=== PATIENT | male | born 1975 | race Caucasian/White ===

== ENCOUNTER → 2019-05-05 | Day surgery (SDC) | payer BC ==
--- NOTE | 2019-04-30 11:24 | Diagnostic Imaging Report ---
EXAMINATION: CHEST 2 VIEWS INDICATION: Pre-operative COMPARISON: None FINDINGS: TUBES and LINES: None. LUNGS: The lung volumes are normal. No focal consolidation or pulmonary edema. PLEURA: No pleural effusion or pneumothorax. HEART AND MEDIASTINUM: The cardiomediastinal silhouette is normal in size and contour. BONES AND SOFT TISSUES: No acute fracture or dislocation. Cervical spine fusion hardware partially visualized. UPPER ABDOMEN: No free air under the diaphragm. IMPRESSION: No focal pneumonia or pulmonary edema. Signed by: Darnell Ramirez MD on 04/30/2019 11:20 AM
[~2019-05-05] MED LIST: ABILIFY5 MG PO; BUSPIRONE HCL10 MG PO; CEFAZOLIN SOD 1 GM/NS 50ML 50 ML IV ONE; CHOLESTEROL PO; DEXAMETHASONE SOD PHOS INJ 4 MG/ML VIAL ONE; ESMOLOL HCL 100MG/10ML 10 MG/ML VIAL ONE; FENTANYL CITRATE/PF 100MCG/2 ML INJ ONE; KETOROLAC TROMETHAMINE 30 MG/ML VIAL ONE; LIDOCAINE HCL 2% LOCAL INJ 5 ML SDV VIAL INJ ONE; LORAZEPAM1 MG PO; LYRICA75 MG PO; METHOCARBAMOL750 MG PO; MIDAZOLAM HCL 2 MG/2 ML VIAL ONE; MORPHINE SULFATE INJ 10 MG/ML ONE; ONDANSETRON HCL INJ 2MG/ML 2ML 2 MG/ML VIAL ONE; OXYCODONE-ACET1 EAC1 PO; PROPOFOL IV EMULSION 10 MG/ML 20 ML VIAL ONE; SERTRALINE HCL100 MG PO; SEVOFLURANE INHAL SOLN 250 ML PEN BTL ONE; SUCCINYLCHOLINE 200 MG/10 ML SYR ONE; benicar PO; fish oil; valium PO; zoloft PO
--- OUTSIDE RECORDS SUMMARY | 2019-05-05 05:08 | XMS REPORT | Clinical Summary ---
Author Author [facility] Address Unknown Phone Unavailable Care Team Providers Care Ux Designer Name Role Phone Clark Warren MD PCP Allergies No Known Allergies Medications End Date Status Medication Sig Dispensed Refills Start Date Active LORAZEPAM ORAL Take by mouth 0 2 (two) times a day. Active sertraline HCl Take 100 mg 0 (SERTRALINE ORAL) by mouth 2 (two) times a day. Active ALPRAZOLAM ORAL Take 10 mg by 0 mouth nightly. Active busPIRone (BUSPAR) 15 MG Take 15 mg by 0 tablet mouth 2 (two) times a day. 04/11/2019 methocarbamol (ROBAXIN) Take 1 tablet 21 tablet 0 750 MG tablet (750 mg 9 total) by mouth 3 (three) times a day for 7 days. 04/11/2019 pregabalin (LYRICA) 75 MG Take 1 21 capsule 0 capsule capsule (75 9 mg total) by mouth 3 (three) times a day for 7 days. 04/11/2019 oxyCODone-acetaminophen Take 1 tablet 28 tablet 0 (PERCOCET) 10-325 mg per by mouth 9 tablet every 6 (six) hours as needed for moderate pain or severe pain for up to 7 days. 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 04/03/2019 Encounters Care Team Description Date Type Specialty Chirag Shane CRNA 04/03/2019 Anesthesia General Surgery Event Sita Sabillon MD ACDF C5-6 W/ REMOVAL OF DEPUY PLATING @ C6-7 W/ MEDTRONIC PLATE AND CERVICAL INTERBODY 04/03/2019 Surgery General Surgery Sita Sabillon MD Degeneration of cervical disc without myelopathy (Primary Dx); Preoperative testing 04/03/2019 Hospital General Surgery - Encounter 04/04/2019 Sita Sabillon MD Preop testing (Primary Dx) 04/01/2019 Pre-Admit Pre-Admission Testing Testing Appointment Sita Sabillon MD 03/28/2019 Hospital Radiology Encounter Sita Sabillon MD 03/28/2019 Hospital Radiology Encounter Sita Sabillon MD 03/28/2019 Hospital Radiology Encounter Sita Sabillon MD 03/28/2019 Hospital Radiology Encounter Thanh Brar MD 03/24/2019 Anesthesia General Surgery Event Diego Hollins MD LEFT ESWL WITH CYSTO WITH REMOVAL OF STENT 03/24/2019 Surgery General Surgery Diego Hollins MD Preop testing; Preoperative testing 03/24/2019 Hospital General Surgery Encounter Diego Hollins MD 03/20/2019 Hospital Radiology Encounter Sita Sabillon MD Preop testing (Primary Dx) 03/20/2019 Pre-Admit Pre-Admission Testing Testing Appointment Sita Sabillon MD 02/26/2019 Hospital Radiology Encounter Sita Sabillon MD Preoperative testing (Primary Dx) 02/26/2019 Pre-Admit Pre-Admission Testing Testing Appointment after 05/04/2018 Family History Medical History Relation Name Comments Cancer Father No Known Problems Mother Relation Name Status Comments Father lung ca Maternal Grandfather Maternal Grandmother Mother Alive Paternal Grandfather Paternal Grandmother Social History Date Tobacco Use Types Packs/Day Years Used Former Smoker Cigarettes 1 15 Smokeless Tobacco: Former User Tobacco Cessation: Ready to Quit: No; Counseling Given: Yes Alcohol Use Drinks/Week oz/Week Comments Yes social Sex Assigned at Date Recorded Not on file Industry Job Start Date Occupation Not on file Not on file Not on file Travel End Travel History Travel Start No recent travel history available. Last Filed Vital Signs Time Taken Vital Sign Reading 04/04/2019 3:23 PM CDT Blood Pressure 149/97 04/04/2019 3:23 PM CDT Pulse 99 04/04/2019 3:23 PM CDT Temperature 36.1 C (97 F) 04/04/2019 3:23 PM CDT Respiratory Rate 18 04/04/2019 3:23 PM CDT Oxygen Saturation 96% - Inhaled Oxygen - Concentration 04/03/2019 8:38 AM CDT Weight 94.8 kg (209 lb) 04/03/2019 8:38 AM CDT Height 172.7 cm (5' 8") 04/03/2019 8:38 AM CDT Body Mass Index 31.78 Plan of Treatment Health Maintenance Due Date Last Done Comments INFLUENZA VACCINE 05/08/2019 Implants Device Identifier Shelf Expiration Date Model / Serial / Lot Implanted Type Area Manufactur er 08/12/2021 [id number] / [id number] / [id number] Tissue [id number] L Sr Srvc Fee, IPM N/A: Spine MEDTRONIC Ts-Allosource L-Sr (Tissue - IMPLANT Cervical SOFAMOR Cervical Interbody) - [id number] - DEVICES MILDRED [id number] Implanted: Qty: 1 on 04/03/2019 by Sita Sabillon MD [id number] / / 3.5 Self-Drilling Screw 13mm IPM N/A: Spine MEDTR[employer]IC Variable - [id number] IMPLANT Cervical SOFAMOR Implanted: Qty: 4 on 04/03/2019 by Sita Carbone MD [id number] / / NA Plate [id number] Zevo 27mm 1 Lvl - IPM N/A: Spine MEDTRONIC [id number] IMPLANT Cervical SOFAMOR Implanted: Qty: 1 on 04/03/2019 by Sita Carbone MD 10/22/2020 [id number] / [id number] / NA Putty .5cc Dbx - Surgical N/A: Spine MUSCULOSKE [id number] - [id number] Implants; Cervical LETAL Implanted: Qty: 1 on 04/03/2019 by Expanders; TRANSPLANT Sita Sabillon MD Extenders; [facility] W[facility] Procedures Comments Procedure Name Priority Date/Time Associated Diagnosis XR CERVICAL SPINE 2 OR 3 Routine 04/03/2019 VW 4:05 PM CDT OR FL > 1 HOUR Routine 04/03/2019 2:55 PM CDT RI AN ELECTIVE Routine 04/03/2019 ENDOTRACHEAL AIRWAY 11:42 AM CDT Procedure Note - Chirag Shane CRNA - 04/03/2019 11:42 AM CDT Airway Performed by: Chirag Shane CRNA Authorized by: Maik Brar MD Location: OR Urgency: Elective Difficult Airway: No Anesthesio logist: Maik Brar MD Resident/C RNA/AA: Chirag Shane CRNA Performed by: resident/C RNA/AA Preoxygena kirsten with 100% O2: Yes Mask Ventilatio n: Not attempted Final Airway Type: Endotrache al airway Final Endotrache al Airway: ETT Cuffed: Yes Technique Used: Direct laryngosco py Devices/Me thods Used in Placement: Intubatin g stylet Insertion Site: Oral Blade Type: Pham Laryngosco pe Blade/Vide olaryngosc ope Blade Size: 2 Cuff at minimum occlusion pressure: Yes Placement Verified by: CO2 detection, direct visualizat ion and equal breath sounds Laryngosco pic view: Grade IIb - view of arytenoids or posterior of glottis only Number of Attempts at Approach: 1 Atraumati c intubation DISCECTOMY, CERVICAL, 04/03/2019 SPINAL STENOSIS, WITH FUSION, ANTERIOR 10:15 AM CDT RADICULOPATHY, STATUS APPROACH POST ACDF M48.02, M54.12, M96.1 Special Needs NEEDS METRONIC, SSEP, ALLOGRAFT, C-ARM, REMOVAL TOOLSJOSH WITH [employer], STEPHANIE WITH [email or web address] AWARE OF NEED FOR REMOVAL INSTRUMENT ATION FOR CASE SCHEDULED FOR 04/03 AT 1015AM TYPE AND SCREEN Routine 04/01/2019 Preop testing 9:15 AM CDT URINALYSIS, AUTOMATED Routine 04/01/2019 Preop testing WITH MICROSCOPY 9:06 AM CDT ESWL WITH CYSTO WITH 03/24/2019 KIDNEY STONE REMOVAL OF STENT 11:10 AM CDT N20.0 Special Needs SCHEDULED ESWL W/ THALIA CONF# [id number] 85. AGERICH XR KUB KIDNEY URETER Routine 03/20/2019 Preop testing BLADDER 3:00 PM CDT ESTIMATED GFR Routine 03/20/2019 2:07 PM CDT BASIC METABOLIC PANEL Routine 03/20/2019 Preop testing 2:07 PM CDT NICOTINE AND COTININE, Routine 03/06/2019 Abnormal blood chemistry SERUM 11:07 AM CDT TYPE AND SCREEN Routine 03/04/2019 Preop testing 12:10 PM CDT XR SPINE EXTERNAL STUDY Routine 02/27/2019 1:12 PM CDT GRAM STAIN Routine 02/26/2019 5:37 PM CDT URINE CULTURE Routine 02/26/2019 5:37 PM CDT URINALYSIS SCREEN AND Routine 02/26/2019 Preoperative testing MICROSCOPY, WITH REFLEX 5:07 PM CDT TO CULTURE XR CHEST 2 VW Routine 02/26/2019 Preoperative testing 3:18 PM CDT ECG 12-LEAD Routine 02/26/2019 Preoperative testing 2:52 PM CDT NICOTINE AND COTININE, Routine 02/26/2019 SERUM 2:50 PM CDT PROTHROMBIN TIME WITH INR Routine 02/26/2019 2:50 PM CDT PARTIAL THROMBOPLASTIN Routine 02/26/2019 Preoperative testing TIME (PTT) 2:50 PM CDT HC COMPLETE BLD COUNT Routine 02/26/2019 Preoperative testing W/AUTO DIFF 2:50 PM CDT URINALYSIS, AUTOMATED Routine 02/26/2019 Preoperative testing WITH MICROSCOPY 2:[address] SPINE EXTERNAL STUDY Routine 10/30/2018 1:42 PM FIRER ELECTRIC LOCOMOTIVE XR SPINE EXTERNAL STUDY Routine 10/23/2018 1:15 PM FIRER [address]LECTRIC LOCOMOTIVE CT SPINE EXTERNAL STUDY Routine 10/21/2018 1:16 PM FIRER ELECTRIC LOCOMOTIVE after 05/04/2018 Results * XR Cervical Spine 2 Or 3 Vw (04/03/2019 4:05 PM CDT) Specimen Narrative Performed At EXAMINATION:XR CERVICAL SPINE 2 OR 3 VW HM RADIANT COMPARISON:Outside plain films February 27, 2019. CLINICAL HISTORY:Intraoperative film. COMMENTS:Intraoperative spot films were obtained in the frontal and lateral projections. FINDINGS:Anterior metallic plate and screws are present C5-6. Intervening bone plug is noted. The vertebral bodies are not seen below C5. IMPRESSION:Intraoperative films as described above. [id number] Procedure Note Interface, Radiology Results Incoming - 04/03/2019 4:16 PM CDT EXAMINATION: XR CERVICAL SPINE 2 OR 3 VW COMPARISON: Outside plain films February 27, 2019. CLINICAL HISTORY: Intraoperative film. COMMENTS: Intraoperative spot films were obtained in the frontal and lateral projections. FINDINGS: Anterior metallic plate and screws are present C5-6. Intervening bone plug is noted. The vertebral bodies are not seen below C5. IMPRESSION: Intraoperative films as described above. [facility]-[id number] Performing Organization Address City/[facility]/Zipcode Phone Number [facility] [address] [place] [address] * OR FL > I Hour (04/03/2019 2:55 PM CDT) Specimen Narrative Performed At EXAMINATION:OR FL 1 HOUR RADIANT C-arm fluoroscopy was requested in OR. FLUORO TIME 00:35 IMAGES 2 IMPRESSION: Separate operative report will be issued by the physician performing the procedure. [id number] Procedure Note Interface, Radiology Results Incoming - 04/03/2019 4:14 PM CDT EXAMINATION: OR FL 1 HOUR C-arm fluoroscopy was requested in OR. FLUORO TIME 00:35 IMAGES 2 IMPRESSION: Separate operative report will be issued by the physician performing the procedure. [id number] Performing Organization Address City/[facility] Cent[facility]ode Phone Number [facility] [address] [place] [address] * Type and screen (04/01/2019 9:15 AM CDT) Only the most recent of 2 results within the time period is included. ABO grouping O [facility] Rh type POS [facility] Antibody screen NEG [facility] Specimen Blood Performing Organization Address City/[facility]/Zipcode Phone Number [facility] [place] [id number] [place] [address] [place] [address] PATHOLOGY AND GENOMIC MEDICINE [facility] [id number] [place] [address] [place] [phone] [facility] * Urinalysis, automated with microscopy (04/01/2019 9:06 AM CDT) Only the most recent of 2 results within the time period is included. Color, UA Yellow [facility] Appearance, UA Clear [facility] Specific 1.023 1.001 - 1.035 [facility] gravity, UA [facility] pH, UA 5.0 5.0 - 8.5 [facility] Protein, UA Negative Negative [facility] Glucose, UA Negative Negative [facility] Ketones, UA Negative Negative [facility] Bilirubin, UA Negative Negative [facility] Blood, UA Negative Negative [facility] Nitrite, UA Negative Negative [facility] Urobilinogen, Negative <2.0 [facility] Leukocyte Negative Negative [facility] esterase, [facility] Epithelial None seen Few /HPF [facility] cells, [facility] Round Few 0 - 1 /HPF [place] [facility] epithelial [facility] cells, [facility] WBC, UA 0-5 0 - 1 /HPF [facility] RBC, UA 0-5 0 - 5 /HPF [facility] Bacteria, UA None seen None seen [facility] Hyaline casts, 3-5 /LPF [facility] Yeast, UA None seen [facility] Yeast with None seen [place] [facility] Specimen Urine Performing Organization Address City/State/Zipcode Phone [place] [address] [place] [address] PATHOLOGY AND GENOMIC MEDICINE [facility] [address] [place] [address] [facility] * XR Kub Kidney Ureter Bladder (03/20/2019 3:00 PM CDT) Specimen Narrative Performed At EXAMINATION:XR KUB KIDNEY URETER BLADDER [facility] CLINICAL HISTORY:Z01.818 Encounter for other preprocedural examination, preop COMPARISON:None. FINDINGS: Double-J ureteral stent in place on the left. The upper coil is at the level of L1. The lower coil is at the midline lower pelvis. Elongated 8 mm calculus just below the upper coil. Scattered fecal material in the colon. Visualized skeleton intact IMPRESSION: Double-J ureteral stent in place on the left. Elongated 8 mm calculus renal pelvis level on the left [id number] Procedure Note Hm Interface, Radiology Results Incoming - 03/20/2019 3:52 PM CDT EXAMINATION: XR KUB KIDNEY URETER BLADDER CLINICAL HISTORY: Z01.818 Encounter for other preprocedural examination, preop COMPARISON: None. FINDINGS: Double-J ureteral stent in place on the left. The upper coil is at the level of L1. The lower coil is at the midline lower pelvis. Elongated 8 mm calculus just below the upper coil. Scattered fecal material in the colon. Visualized skeleton intact IMPRESSION: Double-J ureteral stent in place on the left. Elongated 8 mm calculus renal pelvis level on the left [id number] Performing Organization Address [facility]/Zipcode Phone Number [facility] [address] [place] [address] * Estimated GFR (03/20/2019 2:07 PM CDT) Estimated GFR >=90 mL/min/1.73 m2 [facility] Comment: [facility] rpretation G1 >=90 Normal or high G2 60-89Mildly decreased J3l98-96 Mildly to moderately decreased W0m74-54 Moderately to severely decreased G4 15-29Severely decreased G5 <15Kidney failure The eGFR was calculated using the Chronic Kidney Disease Epidemiology Collaboration (CKD-EPI) equation. Interpretation is based on recommendations of the National Kidney Foundation-Kidney Disease Outcomes Quality Initiative (NKF-KDOQI) published in 2014. Specimen Plasma specimen Performing Organization Address [facility] Centercode Phone [place] [address] [address] [place] [phone] PATHOLOGY AND GENOMIC MEDICINE [facility] [id number] [place] [address] [place] [phone] [facility] * Basic metabolic panel (03/20/2019 2:07 PM CDT) Sodium 142 135 - 148 mEq/L [facility] Potassium 4.4 3.5 - 5.0 mEq/L [facility] Chloride 104 98 - 112 mEq/L [facility] CO2 26 24 - 31 mEq/L [facility] Anion gap 12@ANIO 7 - 15 mEq/L [facility] BUN 20 6 - 20 mg/dL [facility] Creatinine 0.90 0.70 - 1.20 mg/dL [facility] Glucose 118 (H) 65 - 99 mg/dL [facility] Calcium 9.6 8.3 - 10.2 mg/dL [facility] Specimen Plasma specimen Performing Organization Address [facility]/Zipcode [place] Number [place] [address] [address] [place] [phone] PATHOLOGY AND GENOMIC MEDICINE [facility] [address] [place] [phone] [facility] * Nicotine and cotinine, serum (03/06/2019 11:07 AM CDT) Only the most recent of 2 results within the time period is included. Pathologist [facility] Nicotine <2.0 0.0 - 1.9 ng/mL [facility] Cotinine <2.0 0.0 - 1.9 ng/mL [place] [facility] Comment: CAODAISM This test was developed and HOSPITAL its performance characteristics determined by the Department of Pathology and Genomic Medicine, [facility]. Serum nicotine and metabolite cotinine are tested by HPLC tandem mass spectrometry. It has not been cleared or approved by FDA. The laboratory is regulated under CLIA as qualified to perform high-complexity testing. This test is used for clinical purposes. It should not be regarded as investigational or for research. Specimen Blood Performing Organization Address [facility]/Zipcode Phone Number [facility] DEPARTMENT OF [address] [place] [address] PATHOLOGY AND GENOMIC MEDICINE [address] * XR Spine External Study (02/27/2019 1:12 PM CDT) Only the most recent of 2 results within the time period is included. Specimen Narrative Performed At This exam was not acquired at a Denominational facility and has not been RADIANT interpreted by a Denominational Provider.The exam was imported into our imaging system for comparisons purposes. Performing Organization Address City/[facility]/Zipcode Phone Number [facility] [address] [place] [address] * Gram stain (02/26/2019 5:37 PM CDT) [facility] Gram stain No WBC's or organisms seen. [facility] result Comment: CAODAISM Specimen Information HOSPITAL Specimen Source: Urine Specimen Site: Clean catch Specimen Urine Performing Organization Address City/[facility]/Zipcode Phone Number [facility] DEPARTMENT OF [address] [place] [address] PATHOLOGY AND GENOMIC MEDICINE [place] [id number] [place] [address] HOSPITAL * Urine culture (02/26/2019 5:37 PM CDT) Urine culture Mixed triny <=10-3 col/cc [facility] isolate Comment: CAODAISM Specimen Information HOSPITAL Specimen Source: Urine Specimen Site: Clean catch Specimen Urine Performing Organization Address City/[facility]/Zipcode Phone Number [facility] [address] [place] [address] [facility] [place] [address] HOSPITAL * Urinalysis screen and microscopy, with reflex to culture (02/26/2019 5:07 PM CDT) Specimen site Clean catch [facility] Color, UA Fifi [facility] Appearance, UA Turbid [facility] Specific 1.025 1.001 - 1.035 [place] gravity, UA [facility] pH, UA 5.0 5.0 - 8.5 [facility] Protein, UA Negative Negative [facility] Glucose, UA Negative Negative [facility] Ketones, UA Trace (A) Negative [facility] Bilirubin, UA Negative Negative [facility] Blood, UA Moderate (A) Negative [facility] Nitrite, UA Negative Negative [facility] Urobilinogen, Negative <2.0 [facility] Leukocyte Small (A) Negative [place] esterase, UA [facility] Epithelial None seen Few /HPF [place] cells, UA [facility] WBC, UA None seen 0 - 1 /HPF [facility] RBC, UA 0-5 0 - 5 /HPF [facility] Bacteria, UA None seen None seen [facility] Yeast, UA None seen [facility] Yeast with None seen [place] [facility] Specimen Urine Performing Organization Address City/[facility]/Zipcode Phone Number [facility] [address] [place] [address] PATHOLOGY AND GENOMIC MEDICINE [address] [place] [address] [facility] * XR Chest 2 Vw (02/26/2019 3:18 PM CDT) Specimen Narrative Performed At EXAMINATION:XR CHEST 2 VW RADIANT CLINICAL HISTORY:Z01.818 Encounter for other preprocedural examination, PREOP IMPRESSION: Heart and mediastinum are normal. Lungs are clear. There is hardware in cervical spine. [facility]-[id number] Procedure Note Hm Interface, Radiology Results Incoming - 02/26/2019 3:24 PM CDT EXAMINATION: XR CHEST 2 VW CLINICAL HISTORY: Z01.818 Encounter for other preprocedural examination, PREOP IMPRESSION: Heart and mediastinum are normal. Lungs are clear. There is hardware in cervical spine. [facility]-[id number] Performing Organization Address [facility]/Zipcode Phone Number [facility] [address] [place] [address] * ECG 12 lead (02/26/2019 2:52 PM CDT) Ventricular 96 [facility] rate Atrial rate 96 [facility] RI interval 160 [facility] QRSD interval 88 [facility] QT interval 346 [facility] QTC interval 437 [facility] P axis 1 69 [facility] QRS axis 1 -37 [facility] T wave axis 57 [facility] EKG impression Normal sinus rhythm-Possible [facility] MUSE Left atrial enlargement-Left axis deviation-Pulmonary disease pattern-Abnormal ECG-In automated comparison with ECG of 04-MAR-2009 16:32,-QRS axis shifted left- Specimen Narrative Performed At Performing Organization Address [facility] Centercode Phone Number [facility] [address] [place] [address] * Partial thromboplastin time, activated (02/26/2019 2:50 PM CDT) PTT 28.0 23.0 - 36.0 sec [place] [facility] Comment: [facility] PTT therapeutic range for [facility] unfractionated heparin is 61.0-112.0 seconds which corresponds to Anti-Xa 0.3-0.7 U/ml. Specimen Blood Performing Organization Address [facility]/Zipcode Phone Number [facility] DEPARTMENT OF [address] [place] [address] [place] [address] PATHOLOGY AND GENOMIC MEDICINE [address] [place] [address] [facility] * Prothrombin time with INR (02/26/2019 2:50 PM CDT) Pathologist [facility] Prothrombin 12.7 11.5 - 14.5 sec [facility] INR 1.0 [place] [facility] Comment: [facility] International Normalized [facility] Ratio (INR) is a therapeutic monitoring tool for patients who are stable on oral anticoagulant therapy. An INR of 2.0-3.0 is suggested for deep vein thrombosis/pulmonary embolism. Specimen Blood Performing Organization Address City/State/Zipcode Phone Number [facility] DE[place]MENT [place] [id number] [place] [address] [place] [address] PATHOLOGY AND GENOMIC MEDICINE [facility] [address] [place] [address] * CBC with platelet and differential (02/26/2019 2:50 PM CDT) Pathologist [facility] WBC 10.75 4.50 - 11.00 k/uL [facility] RBC 6.08 (H) 4.40 - 6.00 m/uL [facility] HGB 18.6 (H) 14.0 - 18.0 g/dL [facility] HCT 54.7 (H) 41.0 - 51.0 % [facility] MCV 90.0 82.0 - 100.0 fL [facility] MCH 30.6 27.0 - 34.0 pg [facility] MCHC 34.0 31.0 - 37.0 g/dL [facility] RDW - SD 42.6 37.0 - 55.0 fL [facility] MPV 10.6 8.8 - 13.2 fL [facility] Platelet count 162 150 - 400 k/uL [facility] Nucleated RBC 0.00 /100 WBC [facility] Neutrophils 59.3 39.0 - 69.0 % [facility] Lymphocytes 30.8 25.0 - 45.0 % [facility] Monocytes 8.2 0.0 - 10.0 % [facility] Eosinophils 0.7 0.0 - 5.0 % [facility] Basophils 0.5 0.0 - 1.0 % [facility] Specimen Blood Performing Organization Address City/State/Zipcode [place] Number [place] [address] [place] [address] PATHOLOGY AND GENOMIC MEDICINE [facility] [address] [place] [address] [facility] * CT Spine External Study (10/30/2018 1:42 PM FIRER ELECTRIC LOCOMOTIVE) Only the most recent of 2 results within the time period is included. Specimen Narrative Performed At This exam was not acquired at a Denominational facility and has not been RADIANT interpreted by a Denominational Provider.The exam was imported into our imaging system for comparisons purposes. Performing Organization Address City/State/Zipcode Phone Number [facility] [address] [place] [address] after 05/04/2018 Insurance Type Payer Benefit Subscriber ID Effective Phone Address Plan / Dates Group PPO BCBS BCBS xxxxxxxxxxxx 2019- CHOICE Present PPO/[employer] PPO PPO BCBS BCBS xxxxxxxxxxxx 2018-P CHOICE resent PPO/[employer] PPO PPO BCBS BCBS xxxxxxxxxxxx 2019-P CHOICE resent PPO/[employer] PPO Advance Directives Patient has advance care planning documents on file. For more information, salvador e contact: [facility] [address] [place] [address]
--- OUTSIDE RECORDS SUMMARY | 2019-05-05 05:09 | XMS REPORT ---
[facility] Address Unknown Phone Unavailable Care Team Providers Care Shirt Turner Name Role Phone SHERIE BAH Unavailable Unavailable Problems This patient has no known problems. Allergies, Adverse Reactions, Alerts This patient has no known allergies or adverse reactions. Medications This patient has no known medications. Results Test Description Test Time Test Comments Text Results Atomic Results Result Comments CHEST 2 VIEWS 2019-04-30 11:20:00 [place] [id number] Patient Name: JACKY BLEVINS MR #: [id number] : 1975 Age/Sex: 43/M Req #: [id number] Adm Physician: Ordered by: SHERIE BAH MD Report #: [id number] Location: OR Room/Bed: Procedure: [id number] DX/CHEST 2 VIEWS Exam Date: 04/30/19 Exam Time: 1020 REPORT STATUS: Signed EXAMINATION: CHEST 2 VIEWS INDICATION: Pre-operative COMPARISON: None FINDINGS: TUBES and LINES: None. LUNGS: The lung volumes are normal. No focal consolidation or pulmonary edema. PLEURA: No pleural effusion or pneumothorax. HEART AND MEDIASTINUM: The cardiomediastinal silhouette is normal in size and contour. BONES AND SOFT TISSUES: No acute fracture or dislocation. Cervical spine fusion hardware partially visualized. UPPER ABDOMEN: No free air under the diaphragm. IMPRESSION: No focal pneumonia or pulmonary edema. Signed by: Abimbola Raimrez MD on 04/30/2019 11:20 AM Dictated By: ABIMBOLA RAMIREZ MD 112 Transcribed By: PEDRO on 04/30/191119 COPY TO: SHERIE BAH MD
[2019-05-05 08:45] VITALS: BP 134/89
--- NOTE | 2019-05-05 10:59 | Operative Report ---
DATE OF PROCEDURE: 05/05/2019 SURGEON: Haris Mcclendon MD [employer] MACHINE OPERATOR: Austin Conner PA-C. PREOPERATIVE DIAGNOSIS: Right knee recurrent lateral meniscal tear. 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 PROCEDURES: Right knee revision arthroscopy, partial lateral meniscectomy, and chondroplasty of the medial femoral condyle. INDICATIONS: The patient is a 43-year-old gentleman with a long history of right knee pain. He has been through two previous arthroscopies. He has renewed mechanical symptoms in his right knee. An MRI shows a large radial component to a lateral meniscal tear. The patient is highly motivated to proceed with arthroscopy. The risks and benefits have been explained on this several occasions. Particular attention has been spent talking about the likelihood of persistent symptoms due to his previous two arthroscopies in the likelihood of some chondral damage. Likewise, the patient is on chronic high-dose narcotic pain management. Realistic expectations have been repeatedly stressed. He states he understands and wishes to proceed. PROCEDURE IN DETAIL: The patient was brought to the operating room and placed under general anesthetic. Per the report of the anesthesiologist, very high doses of induction agents were necessary to put him to sleep. His right knee was then prepped and draped in a sterile manner. A preoperative time-out was performed. A tourniquet placed on the upper thigh was inflated to 300 mmHg. Standard arthroscopy portals were established. The knee was insufflated with sterile saline and systematically inspected. There was significant tethering and tightness in the anterior lateral soft tissue making navigation through the knee more challenging. The undersurface of the patella demonstrated some grade 1 to grade 2 changes of chondromalacia. The trochlear groove demonstrated extensive grade 3 changes of chondromalacia. This was probed. There were no unstable margins needing to be debrided. The medial compartment was inspected. There was grade 2 to grade 3 chondromalacia of the medial femoral condyle with unstable margins. Mechanical shaver was introduced to gently contour the unstable margins down back to stable margin. The medial meniscus was intact and without any tears. The cruciate ligaments were intact. There was notable prepatellar scarring again making navigation through the knee with the arthroscope more challenging. We ended up putting the scope into the inferior medial portal. There was indeed a recurrent tear of the lateral meniscus. There was also an extensive horizontal tear. Both of these were debrided using a mechanical shaver. The knee was very tight. Intraoperative photographs were taken. The knee was then thoroughly irrigated. Arthroscopic instruments were removed. The portal incisions were closed and a sterile bandage was applied. The patient was extubated and transported to the recovery room in stable condition. Haris Mcclendon MD DR/ROSALINDA /[id number]
== END | disposition home or self-care (01) ==
LOC: OR 05:00
PROVIDERS: ATTEND Specialist
DX: M23.201 Derangement of unspecified lateral meniscus due to old tear or injury, left knee (principal); M94.261 Chondromalacia, right knee; I10 Essential (primary) hypertension; E78.5 Hyperlipidemia, unspecified; M06.9 Rheumatoid arthritis, unspecified; F41.8 Other specified anxiety disorders; Z01.810 Encounter for preprocedural cardiovascular examination; Z01.818 Encounter for other preprocedural examination; Z87.891 Personal history of nicotine dependence; Z87.442 Personal history of urinary calculi; Z98.1 Arthrodesis status; Z79.891 Long term (current) use of opiate analgesic
CPT/HCPCS: 71046; 93005; J0690; J1100; J1885; J2001; J2250; J2270; J2405; J3010